=== PATIENT | female | born 1945 | race Caucasian/White ===

== ENCOUNTER 2018-09-10 10:27 | Emergency (ER) | payer MEDICARE, OTHER ==
[2018-09-10 10:54] VITALS: BP 125/71
== END 2018-09-10 12:10 | disposition left against medical advice (07) ==
LOC: UCEAST 10:27
DX: Z53.8 Procedure and treatment not carried out for other reasons (principal)

== ENCOUNTER 2018-09-11 09:02 | Emergency (ER) | payer MEDICARE ==
[2018-09-11 09:21] VITALS: BP 142/68
--- NOTE | 2018-09-11 09:34 | UC ---
Lower Extremity/Ankle HPI - HPI Summary HPI Summary: 73 year old female presents for toe pain. Yesterday caught toe while walking, extension injury with immediate pain, swelling. deangelo taped toe yesterday, but coninutes to have pain, increased bruising overnight. No prior injuries, sensation intact, intact movement with pain - History of Current Complaint Chief Complaint: UCLowerExtremity Stated Complaint: TOE INJURY Time Seen by Provider: 09/11/18 09:23 Hx Obtained From: Patient ?: No Onset/Duration: Sudden Onset, Lasting Days Severity Initially: Moderate Severity Currently: Moderate Pain Intensity: 7 Pain Scale Used: 0-10 Numeric Aggravating Factor(s): Standing, Ambulation, Nothing Alleviating Factor(s): Rest, Ice, OTC Meds - motrin Able to Bear Weight: Yes - Allergies/Home Medications Allergies/Adverse Reactions: Allergies Allergy/AdvReac Type Severity Reaction Status Date / Time clarithromycin [From Biaxin] Allergy Rash Verified 09/11/18 09:22 fenofibrate [From Tricor] Allergy shut liver Verified 09/11/18 09:22 down latex Allergy Rash Verified 09/11/18 09:22 metoprolol [From Toprol XL] Allergy tingling Verified 09/11/18 09:22 lips Sulfa (Sulfonamide Allergy Rash Verified 09/11/18 09:22 Antibiotics) PMH/Surg Hx/FS Hx/Imm Hx Previously Healthy: Yes - Surgical History Surgical History: Yes Surgery Procedure, Year, and Place: hysterectomy. c2-3 decompression. tooth extraction. couple of cyst removals - Family History Known Family History: Positive: Non-Contributory Negative: Cardiac Disease - Social History Alcohol Use: None Substance Use Type: None Smoking Status (MU): Never Smoked Tobacco Review of Systems All Other Systems Reviewed And Are Negative: Yes Constitutional: Positive: Negative Musculoskeletal: Positive: Arthralgia, Edema, Myalgia Neurological: Positive: Negative Is Patient Immunocompromised?: No Physical Exam Triage Information Reviewed: Yes Appearance: Well-Appearing, No Pain Distress, Well-Nourished Vital Signs: Initial Vital Signs Temp 98.1 F 09/11/18 09:18 Pulse 76 09/11/18 09:18 Resp 16 09/11/18 09:18 BP 142/68 09/11/18 09:18 Pulse Ox 100 09/11/18 09:18 Vital Signs Reviewed: Yes Eyes: Positive: Conjunctiva Clear ENT: Positive: Hearing grossly normal Musculoskeletal: Positive: Other: - full ankleROM with strength intact,no TTP over b/l mal's, neg squeeze testing. no TTP over ankle ligaments Neurological Exam: Normal Neurological: Positive: Other: - SITLT, PT pulses 2+ b/l Psychological Exam: Normal Skin: Positive: Other - left foot: ecchymosis around base of 2, 3, 4 toes, edema at 2nd toe, full ORM of all toes with pain at 2,3 toes, skin intact Lower Extremity Course/Dx - Course Course Of Treatment: radiograph: Order Information: TOE LEFT 2ND Accession Number: [id number] CPT: 30925 Clinical history: Pain about the left second toe status post fall. COMPARISON: None. TECHNIQUE: 4 radiographic views of the left first toe were obtained. FINDINGS: The soft tissues are grossly unremarkable. The bone mineralization is within normal limits. No fracture is identified. Anatomic alignment is maintained. Joint spaces are preserved. IMPRESSION: No fracture or traumatic malalignment of the left second toe. - Post-Op shoe for comfort - use this or a hard heeled shoe to walk - Motrin/ TYlenol as needed for pain - Ice, elevation, rest as much as possible to decrease pain - FOllow up with orthopedics within 3-5 days if no improvement - Differential Dx/Diagnosis Differential Diagnosis/HQI/PQRI: Contusion, Fracture (Closed), Fracture (Open), Sprain, Strain, Tendonitis, Tenosynovitis Provider Diagnosis: Sprain of toe Discharge - Sign-Out/Discharge Documenting (check all that apply): Patient Departure All imaging exams completed and their final reports reviewed: Yes - Discharge Plan Condition: Good Disposition: HOME Patient Education Materials: Sprain (ED), R.I.C.E. Treatment (ED) Referrals: Amparo Bauer MD [Primary Care Provider] - Rubi Olsen MD [Medical Doctor] - (Follow up in 3-5 days if no improvement ) Additional Instructions: - Post-Op shoe for comfort - use this or a hard heeled shoe to walk - "Deangelo tape" toes for comfort - Motrin/ TYlenol as needed for pain - Ice, elevation, rest as much as possible to decrease pain - FOllow up with orthopedics within 3-5 days if no improvement - Billing Disposition and Condition Condition: GOOD Disposition: Home - Attestation Statements Provider Attestation: Per institutional requirements, I have reviewed the chart, however, I was not consulted specifically or made aware of this patient by the midlevel provider. I did not personally evaluate, interact with , or disposition this patient.
== END 2018-09-11 10:44 | disposition home or self-care (01) ==
LOC: UCEAST 09:02
DX: S93.505A Unspecified sprain of left lesser toe(s), initial encounter (principal); W22.8XXA Striking against or struck by other objects, initial encounter; Y92.9 Unspecified place or not applicable; Z88.2 Allergy status to sulfonamides; Z91.040 Latex allergy status
CPT/HCPCS: 99212; G0463